=== PATIENT | female | born 1990 | race American Indian/Alaskan Native ===

== ENCOUNTER 2020-05-08 20:21 | Inpatient (IN) | payer MEDICAID ==
[2020-05-08 21:09] LABS: Hematocrit 39.8 % (30.3-42.9); Hemoglobin 13.8 gm/dl (10.1-14.3); Mean Corpuscular HGB Conc 35 % (30-34); Mean Corpuscular Volume 96 fl (79-97); Platelet Count 294 K/mm3 (140-440); Red Blood Count 4.17 M/mm3 (3.65-5.03)
[2020-05-08] MEDS ORDERED: LIDOCAINE (2%) 20 MG/1 ML VIAL 20 ML MDV INFILTRATI ONE (22:24)
[2020-05-08] MEDS ORDERED: MINERAL OIL 30 ML ORAL LIQD PO PRN (22:24)
[2020-05-08] MEDS ORDERED: TERBUTALINE 1 MG/1 ML INJ SUB-Q PRN (22:24)
[2020-05-08] MEDS ORDERED: AMPICILLIN/NS 2 GM/100 ML 2 GM/100 ML BAG IV ONE (22:24)
[2020-05-08] MEDS ORDERED: fentaNYL 100 MCG/2 ML INJ IV PRN (22:24)
[2020-05-08] MEDS ORDERED: PROMETHAZINE 25 MG TAB PO PRN (22:24)
[2020-05-08] MEDS ORDERED: ePHEDrine SULFATE 50 MG/1 ML INJ IV PRN (22:24)
--- NOTE | 2020-05-08 22:46 | History and Physical Report ---
History of Present Illness Date of examination: 05/08/20 Date of admission: 05/08/20 20:21 Chief complaint: IUFD at 18wks diagnosed 1wk ago by [facility] on 05/01/20 in their office and pt chose to come in today. History of present illness: at 19wks by EDC 10/02/20 with demise diagnosed 1wk ago. Pt states that she had amnio that confirmed Trisomy 13. Pt denies vaginal bleeding or pelvic pain or leakage of fluid. Had one time left sided pelvic cramping that did not recurr. pt denies headache. Pt denies leakage of fluid or movement since one wk ago. Pt has FOB to bedside. 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 and stopped prior to her .) Past Surgical History: no surgical history Social history: no significant social history - Obstetrical History : 2 Para: 1 (This preg with confirmed trisomy 13 and IUFD confirmed 1wk ago) Number of Living Children: 1 Medications and Allergies Allergies Allergy/AdvReac Type Severity Reaction Status Date / Time No Known Allergies Allergy Verified 05/08/20 22:43 Home Medications Medication Instructions Recorded Confirmed Last Taken Type HYDROcodone/ACETAMINOPHEN [[place] 1 each PO Q6HR #20 tablet 11/03/13 Unknown Rx 5/325 Tablet] Ibuprofen [Motrin] 600 mg PO Q8H PRN #60 tablet 11/03/13 Unknown Rx Ibuprofen [Motrin 600 MG tab] 600 mg PO Q8H #30 tablet 11/17/13 Unknown Rx Active Meds: Active Medications Ephedrine Sulfate (Ephedrine Sulfate 50 Mg/1 Ml Inj) 10 mg IV Q2M PRN PRN Reason: Hypotension Fentanyl (Fentanyl 100 Mcg/2 Ml Inj) 100 mcg IV Q2H PRN PRN Reason: Pain,Severe (7-10) LABOR PAIN Lactated Ringer's (Lactated Ringers) 1,000 mls @ 125 mls/hr IV DIRECT TERI Ampicillin Sodium (Ampicillin/Ns 2 Gm/100 Ml) 2 gm in 100 mls @ 100 mls/hr IV Q6HR ONE; Protocol Stop: 05/08/20 23:23 Lidocaine (Lidocaine (2%) 20 Mg/1 Ml Vial 20 Ml Mdv) 20 ml INFILTRATI ONCE ONE Stop: 05/08/20 22:25 Mineral Oil (Mineral Oil 30 Ml Oral Liqd) 30 ml PO QHS PRN PRN Reason: Constipation Misoprostol (Misoprostol 25 Mcg Tab) 100 mcg VAGINAL Q6HR TERI Stop: 05/09/20 18:01 Nalbuphine HCl (Nalbuphine 10 Mg/1 Ml Inj) 10 mg IV Q2H PRN PRN Reason: Pain, Moderate (4-6) Promethazine HCl (Promethazine 25 Mg Tab) 25 mg PO Q6H PRN PRN Reason: Nausea And Vomiting Terbutaline Sulfate (Terbutaline 1 Mg/1 Ml Inj) 0.25 mg SUB-Q ONCE PRN PRN Reason: Hyperstimulation/Hypertonicity Review of Systems All systems: negative (IUFD at 18wk by [facility] confirmed with no records present in hospital) - Vital Signs Vital signs: Vital Signs Pulse BP 75 127/77 05/08/20 21:09 05/08/20 21:09 Temp Pulse Resp BP Pulse Ox 75 127/77 05/08/20 21:09 05/08/20 21:09 - Physical Exam Breasts: Positive: deferred Cardiovascular: Regular rate Lungs: Positive: Normal air movement Abdomen: Positive: soft Genitourinary (Female): Positive: normal external genitalia Vulva: both: normal Vagina: Positive: normal moisture Uterus: Positive: enlarged (18wks) Anus/Rectum: Positive: normal perianal skin Extremities: Positive: normal - Obstetrical FHR: other (none and u/s ordered to confirm demise since no records available) Cervical Dilatation: 0 Cervical Effacement Percentage: 0 station: -4 Uterine Contraction Pattern: Absent Results Result Diagrams: 05/08/20 20:53 Abnormal lab results 05/08/20 Range/Units 20:53 MCH 33 H (28-32) pg MCHC 35 H (30-34) % RDW 12.0 L (13.2-15.2) % All other labs normal. Assessment and Plan IUP at 19wks with demise x1 wk and trisomy 13 done via amniocentesis by [facility]; for induction of labor 1. Confirm via u/sound that no FHR since no records available 2. Discussed plan of care with induction using cytotec 100mcg per vagina every 6hrs [id number] 3. May have IV pain meds as needed and epidural if desired 4. Will give ampicillin with planned induction 5. Obtain walk in labs, also CBC, Fibrinogen, PT/PTT 6. Will also send urinalysis 7. Expect All questions encouraged and answered
[2020-05-09] LABS: Partial Thromboplastin Time 25.6 Sec. (24.2-36.6)
[2020-05-09] MEDS: miSOPROStol 100 MCG TAB VG SCH ×2 (00:01→06:35)
--- NOTE | 2020-05-09 01:10 | Ultrasound Report ---
ULTRASOUND OBSTETRIC LIMITED INDICATION / CLINICAL INFORMATION: cardiac activty. Clinical Gestational Age (GA): 19.0 weeks.days COMPARISON: None available. FINDINGS: HEART RATE (beats per minute): No cardiac activity detected on M-mode AMNIOTIC FLUID INDEX (cm) = 0 (normal = 7-24 cm) PRESENTATION: Breech. ADDITIONAL FINDINGS: None. IMPRESSION: 1. Intrauterine demise with no heart tones detected. Signer Name: Milind Parr MD Signed: 05/09/2020 1:06 AM Workstation Name: [id number]
[2020-05-09] MEDS ORDERED: AMPICILLIN/NS 2 GM/100 ML 2 GM/100 ML BAG IV ONE (02:46)
[2020-05-09] MEDS: LACTATED RINGERS 1,000 ML IV SCH ×2 (02:59→11:48)
[2020-05-09] MEDS: NalbUPHINE 10 MG/1 ML INJ IV PRN ×2 (08:06→15:05)
[2020-05-09 08:11] LABS: Bilirubin,Urine NEG (Negative); Blood,Urine LG (Negative); Color,Urine Yellow (Yellow); Mucus,Urine FEW /HPF; Protein,Urine <15 mg/dL mg/dL (Negative); Urobilinogen,Urine < 2.0 mg/dL (<2.0)
[2020-05-09 09:00] LABS: Amphetamine Screen,Urine Negative; Benzodiazepines Screen,Urine Negative; Cocaine Screen,Urine Negative; Methadone Screen,Urine Negative; Opiate Screen,Urine Negative
[2020-05-09 10:14] LABS: Cannabinoid Screen,Urine PRESUMPTIVE POSITIVE
--- NOTE | 2020-05-09 10:16 | Progress Note ---
Subjective - Subjective Date of service: 05/09/20 Principal diagnosis: IUFD Interval history: IUFD SP cytotec [id number] Plan to increase cytotec dose to 400mcg PV Q4 hours x 5 doses as per ACOG guidlines Maternal well being reassuring at bedside Valeriano Kong MD Objective - Vital Signs Vital Signs: Vital Signs - 12hr 05/09/20 05/09/20 05/09/20 03:00 04:00 06:35 Temperature Pulse Rate 68 Respiratory 18 18 Rate Blood Pressure 111/56 O2 Sat by Pulse Oximetry 05/09/20 05/09/20 07:18 07:21 Temperature 98 F Pulse Rate 65 127 H Respiratory 18 Rate Blood Pressure 110/56 O2 Sat by Pulse 85 Oximetry - Labs Labs: Abnormal Labs 05/08/20 20:53 MCH 33 H MCHC 35 H RDW 12.0 L Laboratory Results - last 24 hr 05/08/20 05/08/20 05/08/20 20:53 20:53 20:53 WBC 6.6 RBC 4.17 Hgb 13.8 Hct 39.8 MCV 96 MCH 33 H MCHC 35 H RDW 12.0 L Plt Count 294 APTT Fibrinogen Urine Color Urine Turbidity Urine pH Ur Specific [place] Urine Protein Urine Glucose (UA) Urine Ketones Urine Blood Urine Nitrite Urine Bilirubin Urine Urobilinogen Ur Leukocyte Esterase Urine WBC (Auto) Urine RBC (Auto) U Epithel Cells (Auto) Urine Mucus Urine Opiates Screen Urine Methadone Screen Ur Barbiturates Screen Ur Phencyclidine Scrn Ur Amphetamines Screen U Benzodiazepines Scrn Urine Cocaine Screen U Marijuana (THC) Screen Drugs of Abuse Note Syphilis IgG Antibody Nonreactive Hep Bs Antigen Non-reactive HIV 1&2 Antibody Rapid Non react HIV P24 Antigen Non react Rubella IgG Antibody Immune Blood Type Antibody Screen 05/08/20 05/08/20 05/09/20 20:53 23:00 07:50 WBC RBC Hgb Hct MCV MCH MCHC RDW Plt Count APTT 25.6 Fibrinogen 301 Urine Color Yellow Urine Turbidity Slightly-cloudy Urine pH 6.0 Ur Specific [place] 1.024 Urine Protein <15 mg/dl Urine Glucose (UA) Neg Urine Ketones Neg Urine Blood Lg Urine Nitrite Neg Urine Bilirubin Neg Urine Urobilinogen < 2.0 Ur Leukocyte Esterase Neg Urine WBC (Auto) 4.0 Urine RBC (Auto) 19.0 U Epithel Cells (Auto) 3.0 Urine Mucus Few Urine Opiates Screen Urine Methadone Screen Ur Barbiturates Screen Ur Phencyclidine Scrn Ur Amphetamines Screen U Benzodiazepines Scrn Urine Cocaine Screen U Marijuana (THC) Screen Drugs of Abuse Note Syphilis IgG Antibody Hep Bs Antigen HIV 1&2 Antibody Rapid HIV P24 Antigen Rubella IgG Antibody Blood Type B POSITIVE Antibody Screen Negative 05/09/20 07:50 WBC RBC Hgb Hct MCV MCH MCHC RDW Plt Count APTT Fibrinogen Urine Color Urine Turbidity Urine pH Ur Specific [place] Urine Protein Urine Glucose (UA) Urine Ketones Urine Blood Urine Nitrite Urine Bilirubin Urine Urobilinogen Ur Leukocyte Esterase Urine WBC (Auto) Urine RBC (Auto) U Epithel Cells (Auto) Urine Mucus Urine Opiates Screen Negative Urine Methadone Screen Negative Ur Barbiturates Screen Negative Ur Phencyclidine Scrn Negative Ur Amphetamines Screen Negative U Benzodiazepines Scrn Negative Urine Cocaine Screen Negative U Marijuana (THC) Screen Presumptive positive Drugs of Abuse Note Disclamer Syphilis IgG Antibody Hep Bs Antigen HIV 1&2 Antibody Rapid HIV P24 Antigen Rubella IgG Antibody Blood Type Antibody Screen
[2020-05-09] MEDS ORDERED: miSOPROStol 200 MCG TAB VG SCH ×2 (12:00)
[2020-05-09] MEDS: miSOPROStol 200 MCG TAB VG SCH ×2 (14:00→18:18)
[2020-05-10] MEDS: miSOPROStol 200 MCG TAB VG SCH ×2 (00:44→05:46)
[2020-05-10] MEDS: NalbUPHINE 10 MG/1 ML INJ IV PRN ×2 (02:22→17:22)
[2020-05-10] MEDS ORDERED: miSOPROStol 200 MCG TAB VG ONE (12:00)
[2020-05-10] MEDS: LACTATED RINGERS 1,000 ML IV SCH ×2 (15:18→23:49)
--- NOTE | 2020-05-10 18:43 | Progress Note ---
Assessment and Plan - Patient Problems (1) IUFD (intrauterine ) Current Visit: Yes Status: Acute Plan to address problem: OF note, during the exam, 3 of the vaginal cytotec pills were still present. Last dosage given aroun 1130. Will give pt around 4 more hours to absorb that medication and then pt will be rechecked for cervical change and to see if meds have absorbed. IF no change, would remove those pills at that point and try 600mcg PV. Case d/w pt. All questions answered. Subjective - Subjective Date of service: 05/10/20 Principal diagnosis: IUFD Interval history: Pt is s/p 5 doses of 400mcg PV cytotec. More cramping and pressure recently noted. Objective - Vital Signs Vital Signs: Vital Signs - 12hr 05/10/20 05/10/20 08:25 08:26 Temperature 99.0 F Pulse Rate 71 71 Respiratory 16 Rate Blood Pressure 127/85 Blood Pressure 127/85 [Left] - Exam Cervical Dilatation: 0.5 (finger tip) Cervical Effacement Percentage: 0 (thick) - Labs Labs: Abnormal Labs 05/08/20 20:53 MCH 33 H MCHC 35 H RDW 12.0 L
[2020-05-10] MEDS ORDERED: miSOPROStol 200 MCG TAB VG PRN (23:17)
[2020-05-11] MEDS: BUTORPHANOL 2 MG/1 ML INJ IV PRN ×2 (01:19→09:05)
[2020-05-11] MEDS ORDERED: miSOPROStol 200 MCG TAB PO SCH (10:00)
--- NOTE | 2020-05-11 10:06 | Progress Note ---
Subjective - Subjective Date of service: 05/11/20 Principal diagnosis: IUFD Interval history: Cervical exam done by RN at bedside: no cervical change +ve increased cramping plan for cytotec 200mcg PO Maternal well being reassuring at bedside Valeriano Kong MD Objective - Vital Signs Vital Signs: Vital Signs - 12hr 05/10/20 05/11/20 05/11/20 23:42 00:00 04:15 Temperature 98.4 F 98.4 F Pulse Rate 64 Respiratory 18 Rate Blood Pressure 116/59 Blood Pressure [Left] O2 Sat by Pulse Oximetry 05/11/20 05/11/20 05/11/20 07:57 07:58 08:00 Temperature 98.0 F Pulse Rate 86 61 56 L Respiratory 16 Rate Blood Pressure 108/77 Blood Pressure 108/77 [Left] O2 Sat by Pulse 99 76 L Oximetry 05/11/20 05/11/20 05/11/20 08:01 08:06 08:11 Temperature Pulse Rate 66 68 62 Respiratory Rate Blood Pressure Blood Pressure [Left] O2 Sat by Pulse 99 99 100 Oximetry 05/11/20 05/11/20 05/11/20 08:16 08:21 08:26 Temperature Pulse Rate 66 77 76 Respiratory Rate Blood Pressure Blood Pressure [Left] O2 Sat by Pulse 100 99 97 Oximetry 05/11/20 05/11/20 05/11/20 08:31 08:36 08:41 Temperature Pulse Rate 77 65 73 Respiratory Rate Blood Pressure Blood Pressure [Left] O2 Sat by Pulse 100 99 98 Oximetry 05/11/20 05/11/20 05/11/20 08:46 08:51 08:56 Temperature Pulse Rate 67 68 64 Respiratory Rate Blood Pressure Blood Pressure [Left] O2 Sat by Pulse 97 98 97 Oximetry 05/11/20 05/11/20 09:01 09:05 Temperature Pulse Rate 59 L Respiratory 14 Rate Blood Pressure Blood Pressure [Left] O2 Sat by Pulse 86 Oximetry - Labs Labs: Abnormal Labs 05/08/20 20:53 MCH 33 H MCHC 35 H RDW 12.0 L
[2020-05-11] MEDS ORDERED: OXYTOCIN DRIP 0 MILLIUNITS/0 ML BAG IV ONE (11:41)
[2020-05-11] MEDS ORDERED: miSOPROStol 200 MCG TAB PO ONE (13:15)
[2020-05-11] MEDS: LACTATED RINGERS 1,000 ML IV SCH ×2 (14:16→21:24)
--- NOTE | 2020-05-11 15:39 | Procedure Note ---
OB Delivery Note - Delivery Date of Delivery: 05/11/20 Surgeon: DOYLE JAFFE Estimated blood loss: 300cc - Vaginal Intrapartum events: other(please specify) (IUFD) Delivery induction: misoprostol Delivery monitor: none Route of delivery: Delivery placenta: spontaneous Delivery comments: I was called for delivery of fetus placenta delivered w/in one hour after 200mcg misoprostil given PO excellent hemostasis uterus confirmed empty via UA plan for d/c to home per patient request Valeriano Jaffe MD
--- NOTE | 2020-05-11 15:41 | Discharge Summary ---
Providers - Providers Date of Admission: 05/08/20 20:21 Date of discharge: 05/11/20 Attending physician: KATELIN NIXON Primary care physician: KATELIN NIXON Hospitalization Reason for admission: IUFD Delivery: Hospital course: IUFD IOL with cervidil, pt did well, delivered nonviable fetus and placenta went home on PPD#0 Valeriano Kong MD Condition at discharge: Stable Disposition: DC-01 TO HOME OR SELFCARE - Discharge Diagnoses (1) IUFD (intrauterine ) Status: Acute Plan - Discharge Medications Prescriptions: Ibuprofen [Motrin Ib] 200 mg PO Q6HR #60 capsule - Provider Discharge Summary Activity: no sex for 6 weeks Diet: routine Additional instructions: [] Smoking cessation referral if applicable(refer to patient education folder for contact #) [] Refer to [facility] Booklet Call your doctor immediately for: * Fever > 100.5 * Heavy vaginal bleeding ( >1 pad per hour) * Severe persistent headache * Shortness of breath * Reddened, hot, painful area to leg or breast * Drainage or odor from incision. * Keep incision clean and dry at all times and follow doctor's instructions regarding bathing/showering - Follow up plan Follow up: KATELIN NIXON MD [Primary Care Provider] - 7 Days
[2020-05-11] MEDS ORDERED: AMMONIA INHALANT IH ONE ×3 (17:07→20:55)
--- NOTE | 2020-05-11 17:27 | Ultrasound Report ---
PELVIC ULTRASOUND INDICATION: Spontaneous this morning, continued mild vaginal bleeding COMPARISON: Limited obstetrical ultrasound 05/08/2020 TECHNIQUE: Transabdominal FINDINGS: Uterus measures 14.2 cm in length. Prominently thickened endometrium is seen with endometri al diameter of 2.5 cm. Moderate amount of fluid is seen within the endometrium and probable blood is also noted within this fluid. There is a small amount of vascularity in the anterior fundal endometri al zone. No increased echogenicity is seen in this area and this is deep within the endometrium near the margin. In the posterior endometrial stripe there is minimal increased echogenicity but no vascul arity. IMPRESSION: I do not see conclusive evidence of retained products of conception though there are some mildly indeterminate findings as above. I certainly cannot exclude that process. As the spontaneous occurred only this morning, I would suggest close follow-up with repeat study in 2-3 days if that is clinically acceptable. Signer Name: Jamel Garg MD Signed: 05/11/2020 5:23 PM Workstation Name: [id number]
[2020-05-11 20:37] LABS: Hematocrit 29.8 % (30.3-42.9); Hemoglobin 10.3 gm/dl (10.1-14.3); Mean Corpuscular HGB Conc 34 % (30-34); Mean Corpuscular Volume 96 fl (79-97); Platelet Count 239 K/mm3 (140-440); Red Blood Count 3.12 M/mm3 (3.65-5.03); Red Cell Distribution Width 11.9 % (13.2-15.2)
[2020-05-11] MEDS ORDERED: METHYLERGONOVINE MALEATE 0.2 MG/ML VIAL IM ONE (21:49)
[2020-05-12] MEDS: LACTATED RINGERS 1,000 ML IV SCH (01:53)
[2020-05-12 07:23] LABS: Hemoglobin 7.4 gm/dl (10.1-14.3); Mean Corpuscular HGB Conc 35 % (30-34); Mean Corpuscular Volume 94 fl (79-97); Platelet Count 211 K/mm3 (140-440); Red Blood Count 2.27 M/mm3 (3.65-5.03); Red Cell Distribution Width 11.9 % (13.2-15.2)
[2020-05-12] MEDS ORDERED: SODIUM CHLORIDE 0.9% 500 ML 500 ML IV NR (08:20)
[2020-05-12 08:27] LABS: Hematocrit 21.8 % (30.3-42.9)
[2020-05-12] MEDS ORDERED: ACETAMINOPHEN 500 MG TAB PO NR (09:54)
[2020-05-12] MEDS ORDERED: oxyCODONE /ACETAMINOPHEN 5-325MG TAB PO ONE (10:30)
[2020-05-12] MEDS ORDERED: diphenhydrAMINE 25 MG CAP PO PRN (12:13)
--- NOTE | 2020-05-12 13:19 | Progress Note ---
Assessment and Plan S/P vag delivery after cytotec induction, PPH and indeterminate u/sound still with maternal tacchy without chest pain 1. Continue PRBC transfusion, benadryl 25mg given and pt to get tylenol 500mg and tab1 percocet for headache; will give both units of PRBC and follow up CBC post transfusion at 4hrs 2. Attempt by nurse for IV restart with pt c/o tenderness to IV site without infiltration and then pt changed her mind. Will follow closely 3. Repeat u/s for confirmation of any retained products and/or resolution of hyperechoic mass seen earlier 4. Plan of care discussed with pt that dependent of u/s, if any retained products, suction dilatation and curettage surgical mgt would be recommended 5. EKG ordered with heart 117-160's 6. Will give oral augmentin with fundal tenderness, leucocytosis and follow closely All questions encouraged and answered Subjective Date of service: 05/12/20 Principal diagnosis: IUFD, PPD#1 severe anemia; u/s hyperechoic mass vs blood clots Interval history: Pt eating breakfast and c/o feeling very weak. Pt states that after voiding yesterday she felt like passing out and denies palpitations today. Mother of pt to bedside. Pt states that her vaginal bleeding is less than yesterday but still has small clots. Denies chest pain or shortness of breath but mother of pt states she has history of irreg fast heart rate at times. Pt denies any anxiety or mood disorder. Objective - Constitutional Vitals: Vital Signs - 12hr 05/12/20 05/12/20 05/12/20 09:18 12:02 12:17 Temperature 98.2 F 98.0 F 97.8 F Pulse Rate 102 H 112 H 103 H Respiratory 16 18 18 Rate Blood Pressure 107/59 120/68 107/62 O2 Sat by Pulse 100 99 100 Oximetry General appearance: Present: no acute distress - EENT ENT: hearing intact - Respiratory Respiratory effort: normal - Breasts Breasts: deferred - Cardiovascular Rhythm: other (tacchycardia with O2 sat at 95%) Extremities: no ischemia - Gastrointestinal General gastrointestinal: Present: non-tender Rectal Exam: deferred - Genitourinary Female genitourinary: other (Uterine fundus at 12-14wk size with minimal tenderness) - Neurologic Neurologic: moves all extremities - Psychiatric Psychiatric: cooperative - Labs CBC & Chem 7: 05/12/20 07:13 Labs: Abnormal lab results 05/11/20 05/12/20 05/12/20 Range/Units Unknown 07:13 10:17 WBC 13.6 H (4.5-11.0) K/mm3 RBC 3.12 L 2.27 L (3.65-5.03) M/mm3 Hgb 7.4 L (10.1-14.3) gm/dl Hct 29.8 L D 21.8 L D (30.3-42.9) % MCH 33 H 33 H (28-32) pg MCHC 35 H (30-34) % RDW 11.9 L 11.9 L (13.2-15.2) % Crossmatch See Detail Medications & Allergies - Medications Allergies/Adverse Reactions: Allergies No Known Allergies Allergy (Verified 05/08/20 22:43) Home Medications: Home Medications Medication Instructions Recorded Confirmed Last Taken Type Acetaminophen [Tylenol] 1,000 mg PO DAILY 05/09/20 05/09/20 05/08/20 17:00 History Vitamin 1 tab PO DAILY 05/09/20 05/09/20 Unknown History Vitamin D3 5,000 UNIT 1 tab PO DAILY 05/09/20 05/09/20 05/08/20 17:00 History Ibuprofen [Motrin Ib] 200 mg PO Q6HR #60 capsule 05/11/20 Unknown Rx Active Medications: Generic Name Dose Route Start Last Admin Trade Name Freq PRN Reason Stop Dose Admin Butorphanol Tartrate 2 mg 05/11/20 01:02 05/11/20 09:05 Butorphanol 2 Mg/1 Ml Inj IV 2 mg Q2H PRN Administration Labor Pain Diphenhydramine HCl 25 mg 05/12/20 12:13 Diphenhydramine 25 Mg Cap PO Q6H PRN Itching Ephedrine Sulfate 10 mg 05/08/20 22:24 Ephedrine Sulfate 50 Mg/1 Ml Inj IV Q2M PRN Hypotension Fentanyl 100 mcg 05/08/20 22:24 05/09/20 03:00 Fentanyl 100 Mcg/2 Ml Inj IV 100 mcg Q2H PRN Administration Pain,Severe (7-10) LABOR PAIN Lactated Ringer's 1,000 mls @ 125 mls/hr 05/08/20 22:30 05/12/20 01:53 Lactated Ringers IV 75 mls/hr DIRECT TERI Administration Sodium Chloride 500 mls @ 0 mls/hr 05/12/20 08:20 Nacl 0.9% 500 Ml IV 05/12/20 20:00 ONCE NR As Directed Mineral Oil 30 ml 05/08/20 22:24 Mineral Oil 30 Ml Oral Liqd PO QHS PRN Constipation Misoprostol 600 mcg 05/10/20 23:17 05/10/20 23:43 Misoprostol 200 Mcg Tab VG 600 mcg BID PRN Administration Labor Induction Misoprostol 200 mcg 05/11/20 10:00 05/11/20 09:33 Misoprostol 200 Mcg Tab PO 200 mcg Q6H TERI Administration Nalbuphine HCl 10 mg 05/08/20 22:24 05/10/20 17:22 Nalbuphine 10 Mg/1 Ml Inj IV 10 mg Q2H PRN Administration Pain, Moderate (4-6) Promethazine HCl 25 mg 05/08/20 22:24 Promethazine 25 Mg Tab PO Q6H PRN Nausea And Vomiting Terbutaline Sulfate 0.25 mg 05/08/20 22:24 Terbutaline 1 Mg/1 Ml Inj SUB-Q ONCE PRN Hyperstimulation/Hypertonicity
[2020-05-12] MEDS: AMOXICILLIN/K CLAV 875/125MG TAB PO SCH (21:21)
[2020-05-12] MEDS: IBUPROFEN 600 MG TAB PO PRN (23:22)
[2020-05-12 23:48] LABS: Hematocrit 25.5 % (30.3-42.9); Hemoglobin 8.8 gm/dl (10.1-14.3)
[2020-05-13] MEDS: IBUPROFEN 600 MG TAB PO PRN ×2 (05:27→14:13)
[2020-05-13] MEDS: AMOXICILLIN/K CLAV 875/125MG TAB PO SCH ×2 (12:13→22:15)
--- NOTE | 2020-05-13 12:22 | Ultrasound Report ---
ULTRASOUND PELVIS INDICATION / CLINICAL INFORMATION: rule out retained product/ FU of recent US. TECHNIQUE: Transabdominal. Duplex Color Doppler used: Yes. COMPARISON: 05/11/2020 FINDINGS: UTERUS: The uterus is anteverted and measures 11.9 x 7.4 x 7.7 cm. There is homogenous uterine echoge nicity without focal uterine lesion. Endometrial thickness measures 3.4 cm which is greater than the prior exam where it measured 2.5 cm. There is continued heterogeneity of the endometrium with persist ent vascular flow. RIGHT ADNEXA: No significant ovarian cyst or mass. Normal color Doppler blood flow. LEFT ADNEXA: No significant ovarian cyst or mass. Normal color Doppler blood flow. URINARY BLADDER: No significant abnormality. FREE FLUID: None. ADDITIONAL FINDINGS: None. IMPRESSION: 1. Findings are worrisome for retained products of conception given the increase in size of the endom etrium with persistent heterogeneity and color flow when compared to prior exam dated 05/11/2020. Signer Name: Forrest Echavarria MD Signed: 05/13/2020 12:17 PM Workstation Name: [id number]
--- NOTE | 2020-05-13 12:56 | Event Note ---
Date: 05/13/20 Brief Note Repeat US showing possible retained products of conception. Patient not currently bleeding heavily. Already eaten today. --Misoprostol buccal 600mcg x 1 --Trend HCG --Repeat US tomorrow AM --If persistent concern for retained POC, will proceed with US guided D&C --NPO after midnight
[2020-05-13] MEDS ORDERED: miSOPROStol 200 MCG TAB PO ONE (14:00)
--- NOTE | 2020-05-13 17:21 | Progress Note ---
Assessment and Plan - Patient Problems (1) IUFD (intrauterine ) Current Visit: Yes Status: Acute Plan to address problem: s/p , however with imaging finding concerning for retained POC given vascularity. However given patient already eaten today, will consider surgical management tomorrow AM. --Misoprostol 600mcg today --HCG now --Repeat US tomorrow to assess for retained POC --Discussed with Dr Cortez who will plan for US guided D&C tomorrow --Continue to monitor Subjective - Subjective Date of service: 05/13/20 Principal diagnosis: IUFD, PPD#1 severe anemia; u/s hyperechoic mass vs blood clots Interval history: US concerning for possible retained POC. Patient not bleeding actively. Patient otherwise well. Pain well controlled. No urinary or bowel complaints. Denies N/V/F/C/CP/SOB. Objective - Vital Signs Latest vital signs: Vital Signs Temp Pulse Resp BP BP Pulse Ox 05/13/20 16:00 98.7 F 80 18 99/60 98 05/13/20 12:00 98.2 F 76 18 105/67 100 05/13/20 08:16 98.6 F 89 18 99/52 100 05/13/20 04:34 97.9 F 79 20 103/66 100 05/12/20 23:29 97.9 F 94 H 20 114/53 100 05/12/20 19:23 99.4 F 82 20 109/49 100 Intake and Output 05/13/20 05/13/20 05/13/20 07:59 15:59 23:59 Intake Total 240 240 Balance 240 240 Intake: Oral 240 240 Other: Total, Intake Amount 240 240 # Voids Void 1 1 - Exam Cardiovascular: Present: Regular rate Lungs: Present: Clear to auscultation, Normal air movement Abdomen: Present: normal appearance Uterus: Present: normal - Labs Labs: Abnormal lab results 05/12/20 Range/Units 23:35 Hgb 8.8 L (10.1-14.3) gm/dl Hct 25.5 L (30.3-42.9) %
[2020-05-13] MEDS ORDERED: HYDROcodone/ACETAMINOPHEN 5-325 MG TAB PO PRN ×2 (20:57→21:01)
[2020-05-13] MEDS ORDERED: LACTATED RINGERS 1,000 ML IV SCH (21:00)
[2020-05-14] MEDS: LACTATED RINGERS 1,000 ML IV SCH ×2 (05:45)
--- NOTE | 2020-05-14 09:35 | Ultrasound Report ---
ULTRASOUND PELVIS INDICATION / CLINICAL INFORMATION: concern for retained POC. TECHNIQUE: Transabdominal. Duplex Color Doppler used: Yes. COMPARISON: 05/12/2020 FINDINGS: UTERUS: The uterus is anteverted and measures 11.4 x 5.5 x 6.8 cm. Endometrial thickness has decrease d from prior exam now measuring 2.1 cm (previously 3.4 cm) however there is persistent internal compl exity and color flow. RIGHT ADNEXA: No significant ovarian cyst or mass. Normal color Doppler blood flow. LEFT ADNEXA: Left ovary was not visualized on this exam. URINARY BLADDER: No significant abnormality. FREE FLUID: None. ADDITIONAL FINDINGS: None. IMPRESSION: 1. Persistent internal complexity and color flow of the endometrium. Although the endometrium has min imally decreased in size since prior exam, these findings are still concerning for retained products of conception. Follow-up as clinically indicated. Signer Name: Forrest Echavarria MD Signed: 05/14/2020 9:30 AM Workstation Name: [id number]
--- NOTE | 2020-05-14 09:58 | Progress Note ---
Subjective Date of service: 05/14/20 Principal diagnosis: IUFD, PPD#3 s/p vag delivery with concern for retained POC Interval history: Pt admits to being NPO and currently with headache. Pt admits to pelvic cramping and still having vaginal bleeding more than a period. Pt desires future fertilit y. Denies N/V/F/C and ambulates to void without difficulty Objective - Constitutional Vitals: Vital Signs - 12hr 05/13/20 05/14/20 05/14/20 23:23 04:24 08:32 Temperature 98.2 F 98.0 F 98.2 F Pulse Rate 86 76 73 Respiratory 20 20 18 Rate Blood Pressure 103/47 98/43 105/61 O2 Sat by Pulse 100 97 100 Oximetry General appearance: Present: no acute distress - Breasts Breasts: deferred - Cardiovascular Rhythm: regular Extremities: no ischemia - Gastrointestinal General gastrointestinal: Present: non-tender - Genitourinary Female genitourinary: other (external pelvic exam with tenderness with palpation of uterus, peripad with scant blood dark in color) - Musculoskeletal Musculoskeletal: strength equal bilaterally - Neurologic Neurologic: moves all extremities - Psychiatric Psychiatric: cooperative - Labs CBC & Chem 7: 05/12/20 23:35 Medications & Allergies - Medications Allergies/Adverse Reactions: Allergies No Known Allergies Allergy (Verified 05/08/20 22:43) Home Medications: Home Medications Medication Instructions Recorded Confirmed Last Taken Type Acetaminophen [Tylenol] 1,000 mg PO DAILY 05/09/20 05/09/20 05/08/20 17:00 History Vitamin 1 tab PO DAILY 05/09/20 05/09/20 Unknown History Vitamin D3 5,000 UNIT 1 tab PO DAILY 05/09/20 05/09/20 05/08/20 17:00 History Ibuprofen [Motrin Ib] 200 mg PO Q6HR #60 capsule 05/11/20 Unknown Rx Active Medications: Generic Name Dose Route Start Last Admin Trade Name Freq PRN Reason Stop Dose Admin Hydrocodone Bitart/Acetaminophen 1 each 05/13/20 20:57 05/13/20 22:15 Hydrocodone/Acetaminophen 5-325 Mg Tab PO 1 each Q6H PRN Administration Pain, Moderate (4-6) Hydrocodone Bitart/Acetaminophen 2 each 05/13/20 21:01 Hydrocodone/Acetaminophen 5-325 Mg Tab PO Q6H PRN Pain , Severe (7-10) Amoxicillin/Clavulanate Potassium 1 each 05/12/20 22:00 05/13/20 22:15 Amoxicillin/K Clav 875/125mg Tab PO 1 each Q12HR TERI Administration Protocol Butorphanol Tartrate 2 mg 05/11/20 01:02 05/11/20 09:05 Butorphanol 2 Mg/1 Ml Inj IV 2 mg Q2H PRN Administration Labor Pain Diphenhydramine HCl 25 mg 05/12/20 12:13 Diphenhydramine 25 Mg Cap PO Q6H PRN Itching Ephedrine Sulfate 10 mg 05/08/20 22:24 Ephedrine Sulfate 50 Mg/1 Ml Inj IV Q2M PRN Hypotension Fentanyl 100 mcg 05/08/20 22:24 05/09/20 03:00 Fentanyl 100 Mcg/2 Ml Inj IV 100 mcg Q2H PRN Administration Pain,Severe (7-10) LABOR PAIN Lactated Ringer's 1,000 mls @ 125 mls/hr 05/13/20 20:56 05/14/20 05:45 Lactated Ringers IV 125 mls/hr DIRECT TERI Administration Ibuprofen 600 mg 05/12/20 23:12 05/13/20 14:13 Ibuprofen 600 Mg Tab PO 600 mg Q6H PRN Administration Pain, Mild (1-3) Mineral Oil 30 ml 05/08/20 22:24 Mineral Oil 30 Ml Oral Liqd PO QHS PRN Constipation Misoprostol 600 mcg 05/10/20 23:17 05/10/20 23:43 Misoprostol 200 Mcg Tab VG 600 mcg BID PRN Administration Labor Induction Misoprostol 200 mcg 05/11/20 10:00 05/11/20 09:33 Misoprostol 200 Mcg Tab PO 200 mcg Q6H TERI Administration Nalbuphine HCl 10 mg 05/08/20 22:24 05/10/20 17:22 Nalbuphine 10 Mg/1 Ml Inj IV 10 mg Q2H PRN Administration Pain, Moderate (4-6) Promethazine HCl 25 mg 05/08/20 22:24 Promethazine 25 Mg Tab PO Q6H PRN Nausea And Vomiting Terbutaline Sulfate 0.25 mg 05/08/20 22:24 Terbutaline 1 Mg/1 Ml Inj SUB-Q ONCE PRN Hyperstimulation/Hypertonicity
--- NOTE | 2020-05-14 10:49 | Anesthesia Consultation ---
Anesthesia Consult and Med Hx Date of service: 05/14/20 - Airway Anesthetic Teeth Evaluation: Good ROM Head & Neck: Adequate Mental/Hyoid Distance: Adequate Mallampati Class: Class II Intubation Access Assessment: Probably Good - Pulmonary Exam CTA: Yes - Cardiac Exam Cardiac Exam: RRR - Pre-Operative Health Status ASA Pre-Surgery Classification: ASA2 Proposed Anesthetic Plan: General - Pulmonary Hx Smoking: No Hx Respiratory Symptoms: No - Cardiovascular System Hx Hypertension: No - Central Nervous System CVA: No - Endocrine Hx Renal Disease: No Hx Liver Disease: No Hx Insulin Dependent Diabetes: No Hx Non-Insulin Dependent Diabetes: No Hx Thyroid Disease: No - Hematic Hx Anemia: Yes (s/p 2 units pRBCs this admission.) - Other Systems Hx Obesity: No - Additional Comments Anesthesia Medical History Comments: Hx IUFD @ 19wks now PPD3 s/p vaginal delivery with concern for retained POC scheduled for D&C. Repeat CBC pending.
[2020-05-14] MEDS ORDERED: ONDANSETRON 4 MG/2 ML INJ IV PRN (11:35)
[2020-05-14] MEDS ORDERED: HYDROmorphone 1 MG/1 ML INJ IV PRN (11:35)
[2020-05-14] MEDS ORDERED: METHYLERGONOVINE MALEATE 0.2 MG/ML VIAL IM ONE (11:49)
[2020-05-14] MEDS ORDERED: SILVER NITRATE APPLICATOR 1 EA TP ONE ×2 (11:49→13:00)
[2020-05-14 11:57] LABS: Hematocrit 25.5 % (30.3-42.9); Hemoglobin 8.8 gm/dl (10.1-14.3); Mean Corpuscular HGB Conc 35 % (30-34); Mean Corpuscular Volume 89 fl (79-97); Platelet Count 186 K/mm3 (140-440); Red Blood Count 2.85 M/mm3 (3.65-5.03); Red Cell Distribution Width 15.9 % (13.2-15.2)
[2020-05-14] MEDS ORDERED: LIDOCAINE MPF (2%) 20 MG/1 ML VIAL 5 ML ONE (11:59)
[2020-05-14] MEDS ORDERED: MIDAZOLAM 2 MG/2 ML INJ ONE (11:59)
[2020-05-14] MEDS ORDERED: propofoL 200 MG/20 ML VIAL IV ONE (11:59)
[2020-05-14] MEDS ORDERED: fentaNYL 100 MCG/2 ML INJ ONE (11:59)
--- NOTE | 2020-05-14 12:13 | Anesthesia Day of Surgery ---
Anesthesia Day of Surgery - Day of Surgery Patient Examined: Yes Patient H&P Reviewed: Yes Patient is NPO: Yes
[2020-05-14] MEDS ORDERED: ceFAZolin/Water 2 GM/20 ML 2 GM/20 ML SYRINGE IV ONE (12:32)
[2020-05-14] MEDS ORDERED: ONDANSETRON 4 MG/2 ML INJ ONE (12:37)
[2020-05-14] MEDS ORDERED: PHENYLEPHRINE/NS 1,000 MCG/10 ML SYRINGE (OR USE) IV ONE (12:37)
[2020-05-14] MEDS ORDERED: dexAMETHasone 20 MG/5 ML VIAL ONE (12:37)
[2020-05-14] MEDS ORDERED: miSOPROStol 200 MCG TAB VG ONE (13:01)
[2020-05-14] MEDS ORDERED: SODIUM CHLORIDE 0.9% IRR 1,500 ML BOTTLE IR ONE (13:04)
[2020-05-14] MEDS ORDERED: KETOROLAC 30 MG/1 ML INJ ONE (13:05)
--- NOTE | 2020-05-14 13:32 | Procedure Note ---
Date of procedure: 05/14/20 Pre-op diagnosis: PPD#3 vag delivery, PPHw/ blood transfusion,retained Products of conception Post-op diagnosis: same Procedure: Operative procedure performed on May 14, 2020. Preoperative diagnosis: day 3 vaginal delivery, hemorrhage with blood transfusion, retained products of conception. Postoperative diagnosis same Procedure: Suction and dilatation curettage Surgeon: Elisha Nixon MD. Anesthesia: General Fluids: 800 cc crystalloids Output: 200 cc clear urine prior to the procedure EBL: 100cc Pathology: Retained products of conception 11x3cm mass and clots sent to lab Findings: An anteverted uterus that sounds to 12 cm and cervix dilated approximately 3 cm with dark large red clot noted; adnexa within normal limits. Procedure: After the risks benefits and alternatives of the procedure was discussed in detail with abnormal ultrasound finding, the plan of care discussed with patient and consents were obtained. Patient was taken to the operating room and was given general anesthesia without difficulty. After the anesthesia was adequate, patient was placed in dorsolithotomy position. cath lab technologist with the ultrasound equipment was present within the operating room and timeout procedure was done. Patient was already given Ancef 2 g preoperative antibiotic. Patient was prepped and draped in usual sterile fashion and a speculum was placed in the vagina after the bladder was emptied with a red rubber catheter. Prior to emptying the bladder the ultrasound was done within the operating room by the digital technician and products of conception was visualized by me. Now that the speculum was in the vagina, ring forcep was used to grasp the dark large clot and gently tease the clot out in a continuous fashion when the product was removed the specimen measured approximately 11 x 3 cm with most of it noted to be placental-like tissue using tissue. Using a uterine sound the uterus was noted to be 12 cm. The 12 size curette suction device was then gently advanced to the fundus and in a clockwise manner the uterine cavity was emptied same was done twice followed by a sharp curettage to all 4 quadrants and a gritty texture noted. The suction device was once again placed and additional scant products noted and same was added to the specimen already removed and sent to the lab. The ultrasound was once again done postprocedure by the same digital technician and this time the uterine cavity was noted to be empty appeared within normal limits. The single-tooth tenaculum was then removed without difficulty and no bleeding noted to the site, however, posterior friable cervix with minimal oozing that stopped with silver nitrate application x2 sticks. The speculum was removed from the vagina. Cytotec 800mcg placed per rectum without difficulty. Hemostasis good. Sponge,lap, instrument and needle counts were correct x2 and patient tolerated the procedure well was extubated and taken to recovery room stable Complications: there were no complications with this procedure. Dictation done by Dr. Elisha Nixon Anesthesia: GETA Surgeon: ELISHA NIXON Estimated blood loss: other (100cc) IV fluids: 800 Urine output: 200 Pathology: list (retained productions of conception) Specimen disposition: to lab Condition: stable Disposition: PACU
--- NOTE | 2020-05-14 13:42 | Post Anesthesia Evaluation ---
- Post Anesthesia Evaluation Patient Participated: Yes Airway Patent: Yes Stable Respiratory Function: Yes Nausea/Vomiting: No Temp > 96.8F: Yes Pain Manageable: Yes Adequeate Hydration: Yes Anesthesia Complications: No
[2020-05-14] MEDS ORDERED: oxyCODONE /ACETAMINOPHEN 5-325MG TAB PO PRN (15:00)
[2020-05-14] MEDS ORDERED: DOXYCYCLINE HYCLATE 100 MG in SODIUM CHLORIDE 0.9% 250ML 250 ML IV SCH (15:00)
--- NOTE | 2020-05-14 15:01 | Ultrasound Report ---
Limited pelvic ultrasound INDICATION: Intraoperative ultrasound is performed for guidance for D and C FINDINGS: Intraoperative ultrasound is performed during D and C to document removal of retained produ cts of gestation. Prominent endometrium/echogenic material is noted on the initial images. Final images show removal of this material Signer Name: Eran Abbasi MD Signed: 05/14/2020 2:57 PM Workstation Name: [id number]
[2020-05-14 17:13] VITALS: BP 120/83
== END 2020-05-14 17:30 | disposition home or self-care (01) | DRG 767 ==
LOC: LD 20:21 → OB 05-12 09:09
PROVIDERS: ADMIT Obstetrics & Gynecology; ATTEND Obstetrics & Gynecology
PROC: 3E033VJ Introduction of Other Hormone into Peripheral Vein, Percutaneous Approach (ICD-10-PCS; 2020-05-09)
PROC: 10E0XZZ Delivery of Products of Conception, External Approach (ICD-10-PCS; principal; 2020-05-11)
PROC: 10D17ZZ Extraction of Products of Conception, Retained, Via Natural or Artificial Opening (ICD-10-PCS; 2020-05-11)
PROC: 10903ZU Drainage of Amniotic Fluid, Diagnostic from Products of Conception, Percutaneous Approach (ICD-10-PCS; 2020-05-11)
PROC: 30233N1 Transfusion of Nonautologous Red Blood Cells into Peripheral Vein, Percutaneous Approach (ICD-10-PCS; 2020-05-12)
DX: O36.4XX0 Maternal care for intrauterine death, not applicable or unspecified (principal); O60.12X0 Preterm labor second trimester with preterm delivery second trimester, not applicable or unspecified; Z20.822 Contact with and (suspected) exposure to COVID-19; O72.1 Other immediate postpartum hemorrhage; Z3A.19 19 weeks gestation of pregnancy; Z37.1 Single stillbirth; Z79.899 Other long term (current) drug therapy
CPT/HCPCS: 36415; 76815; 76856; 76998; 80307; 81001; 84703; 85014; 85018; 85027; 85384; 85730; 86592; 86706; 86762; 86850; 86900; 86901; 86920; 87806; 88305; 93005; G0378; J0290; J0595; J0690; J1100; J1885; J2210; J2250; J2300; J2370; J2405; J2704; J3010; J7050; J7120; P9016; U0003

== ENCOUNTER 2021-03-20 12:07 | Outpatient (CLI) | payer MEDICAID ==
[2021-03-20] MEDS ORDERED: LACTATED RINGERS 500 ML IV ONE (13:46)
[2021-03-20 14:51] LABS: Basophils % (Auto) 0.1 % (0.0-1.8); Eosinophils # (Auto) 0.2 K/mm3 (0.0-0.4); Eosinophils % (Auto) 2.6 % (0.0-4.3); Hematocrit 35.2 % (30.3-42.9); Hemoglobin 11.5 gm/dl (10.1-14.3); Lymphocytes # (Auto) 1.6 K/mm3 (1.2-5.4); Lymphocytes % (Auto) 17.3 % (13.4-35.0); Mean Corpuscular HGB Conc 33 % (30-34); Mean Corpuscular Volume 96 fl (79-97); Monocytes # (Auto) 0.7 K/mm3 (0.0-0.8); Monocytes % (Auto) 7.3 % (0.0-7.3); Platelet Count 222 K/mm3 (140-440); Red Blood Count 3.68 M/mm3 (3.65-5.03); Red Cell Distribution Width 13.5 % (13.2-15.2)
[2021-03-20 14:53] LABS: Bacteria,Urine 2+ /HPF (Negative); Bilirubin,Urine NEG (Negative); Blood,Urine LG (Negative); Color,Urine Yellow (Yellow); Protein,Urine <15 mg/dL mg/dL (Negative); Urobilinogen,Urine < 2.0 mg/dL (<2.0)
[2021-03-20 15:00] LABS: INR 0.93 (0.87-1.13)
[2021-03-20 15:01] LABS: Partial Thromboplastin Time 26.7 Sec. (24.2-36.6)
--- NOTE | 2021-03-20 15:03 | Ultrasound Report ---
Limited OB Ultrasound HISTORY: US for placenta location.. TECHNIQUE: Grayscale and color imaging performed. COMPARISON: No recent comparison exam FINDINGS: Single viable intrauterine gestation with cephalic presentation and heart rate of 171 bpm. Placenta is seen anteriorly and along the fundus with no evidence of placenta previa. No placental ab ruption identified on this exam. Translabial cervical length was 4.1 cm. IMPRESSION: Single viable intrauterine gestation with anterior/fundal placenta as above. Signer Name: Harjeet Chacon MD Signed: 03/20/2021 3:01 PM Workstation Name: [id number]
[2021-03-20 16:02] VITALS: BP 112/59
== END 2021-03-20 17:52 | disposition home or self-care (01) ==
LOC: TRG 12:07 → APU 12:36 → TRG 17:52
PROVIDERS: ATTEND Obstetrics & Gynecology
DX: O46.8X3 Other antepartum hemorrhage, third trimester (principal); Z3A.30 30 weeks gestation of pregnancy
CPT/HCPCS: 36415; 76815; 81001; 85025; 85384; 85610; 85730